=== PATIENT | female | born 1985 | race Caucasian/White ===

== ENCOUNTER 2017-11-13 08:03 | Emergency (ER) | payer MEDICARE, OTHER ==
[2017-11-13 08:12] VITALS: BP 129/69; PULSE 69; RESP 18; TEMP 98.2
[2017-11-13] MEDS ORDERED: MORPHINE SULFATE 4MG/4ML SYRG IM STA (08:32)
--- NOTE | 2017-11-13 08:36 | ED ---
General Adult HPI - General Chief complaint: Back Pain/Injury Stated complaint: Fall Time Seen by Provider: 11/13/17 08:15 Source: patient, RN notes reviewed Mode of arrival: wheelchair Limitations: physical limitation - History of Present Illness Initial comments: Patient 32-year-old female presented to the emergency room today with a chief complaint of a slip and fall that occurred this morning. She states she slipped on some icy steps falling down on one of the stairs on mid right back. Patient does admit to a history of back pain had a back surgery 2 years ago and for her. Patient states that she has had increased pain to the area where she fell on the right side of the back also pain radiating into the right leg going down the foot. States she's never had that before. Denies any bowel or bladder incontinence retention. Denies any saddle anesthesia. Denies any other complaints. Denies any head injury or loss consciousness. Patient denies any recent fever, chills, shortness of breath, chest pain, abdominal pain, nausea or vomiting, dysuria or hematuria, constipation or diarrhea, headaches or visual changes, or any other complaints. - Related Data Home Medications Medication Instructions Recorded Confirmed Cyclobenzaprine [Flexeril] 10 mg PO TID PRN 11/13/17 11/13/17 Desvenlafaxine Succinate [Pristiq 50 mg PO DAILY 11/13/17 11/13/17 ER] Diclofenac Sodium [Voltaren] 75 mg PO BID PRN 11/13/17 11/13/17 Melatonin 10 mg PO HS PRN 11/13/17 11/13/17 clonazePAM [KlonoPIN] 0.5 mg PO TID PRN 11/13/17 11/13/17 lamoTRIgine [LaMICtal] 200 mg PO BID 11/13/17 11/13/17 oxyCODONE-APAP 10-325MG [Percocet 1 tab PO TID PRN 11/13/17 11/13/17 10-325 mg] Previous Rx's Medication Instructions Recorded Dexamethasone 0.75 mg PO DIRECTED #12 tablet 11/13/17 Ibuprofen [Motrin] 800 mg PO Q6HR #30 tab 11/13/17 Allergies Allergy/AdvReac Type Severity Reaction Status Date / Time TAPE AdvReac Rash/Hives Uncoded 11/13/17 08:12 Review of Systems ROS Statement: Those systems with pertinent positive or pertinent negative responses have been documented in the HPI. ROS Other: All systems not noted in ROS Statement are negative. Past Medical History Past Medical History: No Reported History History of Any Multi-Drug Resistant Organisms: None Reported Additional Past Surgical History / Comment(s): LUMBAR FUSION 2016 Past Psychological History: Depression Smoking Status: Never smoker Past Alcohol Use History: Rare Past Drug Use History: None Reported General Exam - General Exam Comments Initial Comments: General: The patient is awake and alert, in no distress, and does not appear acutely ill. Eye: Pupils are equal, round and reactive to light, extra-ocular movements are intact. No nystagmus. There is normal conjunctiva bilaterally. No signs of icterus. Ears, nose, mouth and throat: There are moist mucous membranes and no oral lesions. Neck: The neck is supple, there is no tenderness or JVD. Cardiovascular: There is a regular rate and rhythm. No murmur, rub or gallop is appreciated. Respiratory: Lungs are clear to auscultation, respirations are non-labored, breath sounds are equal. No wheezes, stridor, rales, or rhonchi. Musculoskeletal: Normal ROM. Surgical incision midline lower lumbar. Patient does have tenderness throughout the lumbar spine with increased tenderness To the right side of the lumbar spine. Strength 5/5. Sensation intact. Pulses equal bilaterally 2+. Neurological: A&O x 3. CN II-XII intact, There are no obvious motor or sensory deficits. Coordination appears grossly intact. Speech is normal. Skin: Skin is warm and dry and no rashes or lesions are noted. Psychiatric: Cooperative, appropriate mood & affect, normal judgment. Limitations: physical limitation Course Vital Signs 11/13/17 08:04 Temperature 98.2 F Pulse Rate 69 Respiratory 18 Rate Blood Pressure 129/69 O2 Sat by Pulse 100 Oximetry Medical Decision Making - Medical Decision Making Patient reexamined at this time shows no signs of distress. Patient was given morphine here in the emergency room for her symptoms. Patient's x-rays have been reviewed and shows stable hardware no acute abnormalities. Results were discussed with the patient. She has Percocet at home along with muscle relaxers that she can use. She'll be given anti-inflammatories and steroids for her symptoms. Advised to follow-up with family physician and orthopedics for further evaluation Disposition Clinical Impression: Acute exacerbation of chronic low back pain Disposition: HOME SELF-CARE Condition: Good Instructions: Acute Low Back Pain (ED) Additional Instructions: Please use medication as discussed. Please follow-up with family doctor in the next 2 days of symptoms have not improved. Please return to emergency room if the symptoms increase or worsen or for any other concerns. Prescriptions: Dexamethasone 0.75 mg PO DIRECTED #12 tablet Ibuprofen [Motrin] 800 mg PO Q6HR #30 tab Is patient prescribed a controlled substance at discharge?: No Referrals: None,Stated [Primary Care Provider] - 1-2 days Dahiana Michael MD [STAFF PHYSICIAN] - 1-2 days Moustapha Brunson DO [Doctor of Osteopathic Medicine] - 1-2 days Time of Disposition: 09:06
--- NOTE | 2017-11-13 08:50 | XR ---
EXAMINATION TYPE: XR lumbar spine 2 or 3V DATE OF EXAM: 11/13/2017 CLINICAL HISTORY: Back pain after a fall with history of prior lumbar surgery TECHNIQUE: Frontal and lateral images of the lumbar spine are obtained. COMPARISON: None FINDINGS: There are 5 lumbar type vertebral bodies identified. Pedicular screws, fixation rods, ant erior fixation devices and intervertebral disc cages along with surgical clips are seen of L3-S1. The re is a slight levoscoliosis of the thoracolumbar junction. Vertebral body heights and alignment appe ar maintained. Visualized ribs are intact. Overlying bowel gas pattern is nondilated. Transverse proc esses also appear intact. IMPRESSION: 1. No acute fracture or malalignment is seen in the lumbar spine. 2. Postoperative changes of L3-S1 and mild levoscoliosis of the thoracolumbar junction.
== END 2017-11-13 09:17 | disposition home or self-care (01) ==
LOC: EC 08:03
DX: M54.5 Low back pain (principal); G89.29 Other chronic pain; F32.9 Major depressive disorder, single episode, unspecified; Z79.899 Other long term (current) drug therapy; Z91.09 Other allergy status, other than to drugs and biological substances; Z98.890 Other specified postprocedural states; W10.9XXA Fall (on) (from) unspecified stairs and steps, initial encounter
CPT/HCPCS: 72100; 99283; J2270

== ENCOUNTER 2017-12-21 12:27 | Emergency (ER) | payer MEDICARE, OTHER ==
[2017-12-21 12:35] VITALS: RESP 18
[2017-12-21] MEDS ORDERED: SODIUM CHLORIDE 0.9% 1,000 ML IV STA (13:06)
[2017-12-21] MEDS ORDERED: METOCLOPRAMIDE 5 MG/ML 2 ML VIAL IVP STA (13:06)
[2017-12-21] MEDS ORDERED: KETOROLAC 30 MG/ML 1 ML VIAL IVP STA (13:06)
[2017-12-21] MEDS ORDERED: PANTOPRAZOLE 40 MG/10 ML VIAL IVP STA (13:06)
--- NOTE | 2017-12-21 13:13 | ED ---
Abdominal Pain HPI - General Chief Complaint: Abdominal Pain Stated Complaint: Sent by [facility] abdominal pain Time Seen by Provider: 12/21/17 12:48 Source: patient, RN notes reviewed, old records reviewed Mode of arrival: ambulatory Limitations: no limitations - History of Present Illness Initial Comments: 32-year-old female presents to the emergency Department chief complaint of burning abdominal pain for the past 2 days. Chest is nauseated. She was treated for an upper respiratory infection earlier in the week by medics breath. Was started on steroids and antibiotics. Patient states she's been taking his medications. Patient relates that she's had a history of gastritis. She was given fluids and sent here for medical history further dehydration further evaluation in regards to abdominal pain. She states that her cough and congestion as mildly improving. Patient states that she did not receive much relief after Zofran and Pepcid to urgent care. - Related Data Home Medications Medication Instructions Recorded Confirmed Desvenlafaxine Succinate [Pristiq 50 mg PO DAILY 11/13/17 12/21/17 ER] clonazePAM [KlonoPIN] 0.5 mg PO TID PRN 11/13/17 12/21/17 lamoTRIgine [LaMICtal] 200 mg PO DAILY 11/13/17 12/21/17 oxyCODONE-APAP 10-325MG [Percocet 1 tab PO TID PRN 11/13/17 12/21/17 10-325 mg] Amoxicillin/Potassium Clav 1 tab PO TID 12/21/17 12/21/17 [Augmentin 500-125 Tablet] Previous Rx's Medication Instructions Recorded Omeprazole 20 mg PO DAILY #20 cap 12/21/17 Ondansetron [Zofran] 4 mg PO Q8HR PRN #15 tab 12/21/17 Allergies Allergy/AdvReac Type Severity Reaction Status Date / Time TAPE AdvReac Rash/Hives Uncoded 12/21/17 12:35 Review of Systems ROS Statement: Those systems with pertinent positive or pertinent negative responses have been documented in the HPI. ROS Other: All systems not noted in ROS Statement are negative. Past Medical History Past Medical History: No Reported History Additional Past Medical History / Comment(s): back pain History of Any Multi-Drug Resistant Organisms: None Reported Past Surgical History: No Surgical Hx Reported Additional Past Surgical History / Comment(s): LUMBAR FUSION 2016 Past Psychological History: Anxiety, Depression Smoking Status: Never smoker Past Alcohol Use History: None Reported Past Drug Use History: None Reported General Exam - General Exam Comments Initial Comments: 32-year-old female. Alert and oriented. No acute distress. Limitations: no limitations General appearance: alert, in no apparent distress Head exam: Present: atraumatic, normocephalic, normal inspection Eye exam: Present: normal appearance, PERRL, EOMI. Absent: scleral icterus, conjunctival injection, periorbital swelling ENT exam: Present: normal exam, mucous membranes moist Neck exam: Present: normal inspection. Absent: tenderness, meningismus, lymphadenopathy Respiratory exam: Present: normal lung sounds bilaterally. Absent: respiratory distress, wheezes, rales, rhonchi, stridor Cardiovascular Exam: Present: regular rate, normal rhythm, normal heart sounds. Absent: systolic murmur, diastolic murmur, rubs, gallop, clicks GI/Abdominal exam: Present: soft, normal bowel sounds. Absent: distended, tenderness, guarding, rebound, rigid Extremities exam: Present: normal inspection, full ROM, normal capillary refill. Absent: tenderness, pedal edema, joint swelling, calf tenderness Back exam: Present: normal inspection Neurological exam: Present: alert, oriented X3, CN II-XII intact Psychiatric exam: Present: normal affect, normal mood Skin exam: Present: warm, dry, intact, normal color. Absent: rash Course Vital Signs 12/21/17 12:32 Temperature 97.0 F L Pulse Rate 59 L Respiratory 18 Rate Blood Pressure 120/64 O2 Sat by Pulse 99 Oximetry Medical Decision Making - Lab Data Result diagrams: 12/21/17 13:15 12/21/17 13:15 Lab Results 12/21/17 12/21/17 12/21/17 Range/Units 13:15 13:15 14:23 WBC 12.7 H (3.8-10.6) k/uL RBC 4.35 (3.80-5.40) m/uL Hgb 12.7 (11.4-16.0) gm/dL Hct 37.5 (34.0-46.0) % MCV 86.1 (80.0-100.0) fL MCH 29.2 (25.0-35.0) pg MCHC 33.9 (31.0-37.0) g/dL RDW 12.9 (11.5-15.5) % Plt Count 252 (150-450) k/uL Neutrophils % 69 % Lymphocytes % 22 % Monocytes % 6 % Eosinophils % 2 % Basophils % 0 % Neutrophils # 8.8 H (1.3-7.7) k/uL Lymphocytes # 2.8 (1.0-4.8) k/uL Monocytes # 0.7 (0-1.0) k/uL Eosinophils # 0.2 (0-0.7) k/uL Basophils # 0.0 (0-0.2) k/uL Sodium 144 (137-145) mmol/L Potassium 3.5 (3.5-5.1) mmol/L Chloride 105 (98-107) mmol/L Carbon Dioxide 26 (22-30) mmol/L Anion Gap 13 mmol/L BUN 15 (7-17) mg/dL Creatinine 0.70 (0.52-1.04) mg/dL Est GFR (CKD-EPI)AfAm >90 (>60 ml/min/1.73 sqM) Est GFR (CKD-EPI)NonAf >90 (>60 ml/min/1.73 sqM) Glucose 80 (74-99) mg/dL Calcium 9.2 (8.4-10.2) mg/dL Total Bilirubin 0.2 (0.2-1.3) mg/dL AST 23 (14-36) U/L ALT 47 (9-52) U/L Alkaline Phosphatase 61 (38-126) U/L Total Protein 6.3 (6.3-8.2) g/dL Albumin 3.9 (3.5-5.0) g/dL Amylase 52 (30-110) U/L Lipase 47 (23-300) U/L Urine Color Yellow Urine Appearance Clear (Clear) Urine pH 5.5 (5.0-8.0) Ur Specific Adrian 1.024 (1.001-1.035) Urine Protein Trace H (Negative) Urine Glucose (UA) Negative (Negative) Urine Ketones 1+ H (Negative) Urine Blood Negative (Negative) Urine Nitrite Negative (Negative) Urine Bilirubin Negative (Negative) Urine Urobilinogen <2.0 (<2.0) mg/dL Ur Leukocyte Esterase Negative (Negative) Disposition Clinical Impression: Gastritis Disposition: HOME SELF-CARE Condition: Good Instructions: Gastritis (ED) Additional Instructions: Patient has follow-up with primary care provider. Return to the emergency department if any alarming signs or symptoms occur. Prescriptions: Omeprazole 20 mg PO DAILY #20 cap Ondansetron [Zofran] 4 mg PO Q8HR PRN #15 tab PRN Reason: Pain Is patient prescribed a controlled substance at d/c from ED?: No When asked, does pt state using other controlled substances?: No If prescribed controlled substance>3 days was MAPS reviewed?: No If opioid is for acute pain is fill amount 7 days or less?: No If Rx opioid, was Start Talking consent form obtained?: No Referrals: Jacqueline Yeh MD [Primary Care Provider] - 1-2 days Time of Disposition: 15:29
[2017-12-21 13:29] LABS: Basophils % (A) 0 %; Eosinophils # (A) 0.2 k/uL (0-0.7); Eosinophils % (A) 2 %; HCT 37.5 % (34.0-46.0); HGB 12.7 gm/dL (11.4-16.0); Lymphocytes # (A) 2.8 k/uL (1.0-4.8); Lymphocytes % (A) 22 %; MCH 29.2 pg (25.0-35.0); MCHC 33.9 g/dL (31.0-37.0); MCV 86.1 fL (80.0-100.0); Mean Platelet Volume 7.6; Monocytes # (A) 0.7 k/uL (0-1.0); Monocytes % (A) 6 %; Neutrophils # (A) 8.8 k/uL (1.3-7.7); Neutrophils % (A) 69 %; Platelet Count 252 k/uL (150-450); RBC 4.35 m/uL (3.80-5.40); RDW 12.9 % (11.5-15.5); WBC 12.7 k/uL (3.8-10.6)
[2017-12-21 13:37] LABS: ALT 47 U/L (9-52); AST 23 U/L (14-36); Albumin 3.9 g/dL (3.5-5.0); Alkaline Phosphatase 61 U/L (38-126); Amylase 52 U/L (30-110); Anion Gap 13 mmol/L; Blood Urea Nitrogen 15 mg/dL (7-17); Calcium 9.2 mg/dL (8.4-10.2); Carbon Dioxide 26 mmol/L (22-30); Chloride 105 mmol/L (98-107); Glucose 80 mg/dL (74-99); Lipase 47 U/L (23-300); Potassium 3.5 mmol/L (3.5-5.1); Sodium 144 mmol/L (137-145); Total Bilirubin 0.2 mg/dL (0.2-1.3); Total Protein 6.3 g/dL (6.3-8.2)
--- NOTE | 2017-12-21 13:49 | XR ---
EXAMINATION TYPE: XR chest 2V DATE OF EXAM: 12/21/2017 COMPARISON: NONE INDICATION: Abdominal pain TECHNIQUE: Frontal and lateral views of the chest are obtained. FINDINGS: The heart size is normal. The pulmonary vasculature is normal. The lungs are clear. Scoliosis is noted. IMPRESSION: 1. No acute pulmonary process.
--- NOTE | 2017-12-21 14:26 | US ---
EXAMINATION TYPE: US gallbladder DATE OF EXAM: 12/21/2017 COMPARISON: NONE CLINICAL HISTORY: Pain. EC patient with RUQ burning today, loose stools last night; on Augmentin x 4 days for ear infection EXAM MEASUREMENTS: Liver Length: 15.6 cm Gallbladder Wall: 0.1 cm CBD: 0.3 cm Right Kidney: 10.9 x 5.9 x 3.5 cm Pancreas: wnl Liver: limited visualization due to overlying bowel gas Gallbladder: wnl Evidence for sonographic Balderrama's sign: No CBD: wnl Right Kidney: wnl IMPRESSION: 1. Normal right upper quadrant ultrasound.
[2017-12-21 14:51] LABS: Appearance,Urine Clear (Clear); Bilirubin,Urine Negative (Negative); Blood,Urine Negative (Negative); Color,Urine Yellow; Glucose,Urine (UA) Negative (Negative); Ketones,Urine 1+ (Negative); Leukocyte Esterase,Urine Negative (Negative); Nitrite,Urine Negative (Negative); PH, Urine 5.5 (5.0-8.0); Protein,Urine Trace (Negative); Specific Gravity,Urine 1.024 (1.001-1.035); Urobilinogen,Urine <2.0 mg/dL (<2.0)
[2017-12-21 15:43] VITALS: BP 122/57; PULSE 58; TEMP 98.1
== END 2017-12-21 15:48 | disposition home or self-care (01) ==
LOC: EC 12:27
DX: K29.70 Gastritis, unspecified, without bleeding (principal); F32.9 Major depressive disorder, single episode, unspecified; F41.9 Anxiety disorder, unspecified; Z79.899 Other long term (current) drug therapy; Z91.048 Other nonmedicinal substance allergy status; Z53.29 Procedure and treatment not carried out because of patient's decision for other reasons
CPT/HCPCS: 36415; 80053; 82150; 83690; 85025; 81003; 71046; 76705; 99285; 96374; 96375; 96361; J1885; C9113

== ENCOUNTER → 2018-02-13 | Outpatient (CLI) | payer MEDICARE, OTHER ==
--- NOTE | 2018-02-14 12:44 | MR ---
EXAMINATION TYPE: MR cervical spine wo con DATE OF EXAM: 02/13/2018 COMPARISON: HISTORY: Neck/lower back pain, headaches TECHNIQUE: Multiplanar, multisequence images of the cervical spine were acquired. C2-C3: No evidence for degenerative disc disease. No disc bulge/herniation or protrusion. No Canal stenosis. Foramina are patent bilaterally. C3-C4: Some loss of disc height and signal is present, posterior broad-based disc bulge causes mild a nterior mass effect on the thecal sac. Lateral extension of endplate disc complex causes minimal encr oachment on the foramina. No significant central stenosis. C4-C5: No evidence for degenerative disc disease. No disc bulge/herniation or protrusion. No Canal stenosis. Foramina are patent bilaterally. C5-C6: No evidence for degenerative disc disease. No disc bulge/herniation or protrusion. No Canal stenosis. Foramina are patent bilaterally. C6-C7: No evidence for degenerative disc disease. No disc bulge/herniation or protrusion. No Canal stenosis. Foramina are patent bilaterally. C7-T1: No evidence for degenerative disc disease. No disc bulge/herniation or protrusion. No Canal stenosis. Foramina are patent bilaterally. Cervical segments are intact. There is normal alignment. Cervical spinal cord is of normal signal. Craniovertebral junction relationships are within normal limits. There is mild multilevel spondylos is, some minimal endplate discogenic marrow signal change present C4-5. IMPRESSION: Mild degenerative disc disease.
--- NOTE | 2018-02-14 12:56 | MR ---
EXAMINATION TYPE: MR lumbar spine wo/w con DATE OF EXAM: 02/13/2018 COMPARISON: Plain film 11/13/2017 HISTORY: Neck/lower back pain, headaches, hx lumbar fusion TECHNIQUE: Multiplanar, multisequence images of the lumbar spine were acquired utilizing 7.5 mL intravenous Gada vist gadolinium contrast. L1-L2: Normal disc appearance without desiccation. No herniation, protrusion or disc bulging. No ca nal stenosis is present. Foramina are patent bilaterally. L2-L3: Normal disc appearance without desiccation. No herniation, protrusion or disc bulging. No ca nal stenosis is present. Foramina are patent bilaterally. L3-L4: No evident disc herniation. L4-L5: No evident disc herniation. L5-S1: Suspect there is posterior extension of endplate disc complex resulting in some possible anter ior mass effect on the proximal S1 nerve root There is extensive artifact due to patient's fusion changes at L3-S1. There is a spinal curvature. Th ere is no evident spinal stenosis. No abnormal enhancement is evident IMPRESSION: Exam is limited. Correlate for left S1 radiculopathy. Patient is with known scoliosis.
== END | disposition home or self-care (01) ==
LOC: RADMRIMAIN 20:59
PROVIDERS: ATTEND Nurse Practitioner Acute Care
DX: M50.30 Other cervical disc degeneration, unspecified cervical region (principal); M41.86 Other forms of scoliosis, lumbar region
CPT/HCPCS: 72141; 72158; A9581

== ENCOUNTER 2018-03-02 12:56 | Emergency (ER) | payer MEDICARE, OTHER ==
[2018-03-02 13:28] VITALS: BP 117/64; PULSE 54; RESP 18; TEMP 98.2
[2018-03-02] MEDS ORDERED: PROPARACAINE 0.5% OPHTH DROPS 15 ML BTL RIGHT EYE STA (14:22)
--- NOTE | 2018-03-02 14:50 | ED ---
Eye Problem HPI - General Chief complaint: Eye Problems Stated complaint: Oil in R eye by accident Time Seen by Provider: 03/02/18 14:19 Source: patient, RN notes reviewed Mode of arrival: ambulatory Limitations: no limitations - History of Present Illness Initial comments: This is a 32-year-old female who presents to the emergency department with chief complaint of foreign substance in the eye. Patient states that she woke up at 3 AM in the morning and went to put eye drops in her eye. She states that she accidentally put Lavender essential oil into the eye instead. Patient states that her eye instantly felt irritated and she flushed it out with some water. She states that she went to bed and when she woke up in the morning it was crusted shut. Patient states she presented to [facility] and they checked the pH of her eye and that it was alkaline. She states that they recommended that patient come to the emergency department for further evaluation. Patient states that she does have some blurred vision. She states that she normally wears contact lenses but was not wearing them at the time of the incident or today. Patient reports eye pain. Denies vision loss. Denies fevers or chills, chest pain or shortness or breath, abdominal pain, nausea or vomiting, dizziness or headache. - Related Data Home Medications Medication Instructions Recorded Confirmed Desvenlafaxine Succinate [Pristiq 50 mg PO DAILY 11/13/17 12/21/17 ER] clonazePAM [KlonoPIN] 0.5 mg PO TID PRN 11/13/17 12/21/17 lamoTRIgine [LaMICtal] 200 mg PO DAILY 11/13/17 12/21/17 oxyCODONE-APAP 10-325MG [Percocet 1 tab PO TID PRN 11/13/17 12/21/17 10-325 mg] Amoxicillin/Potassium Clav 1 tab PO TID 12/21/17 12/21/17 [Augmentin 500-125 Tablet] Previous Rx's Medication Instructions Recorded Omeprazole 20 mg PO DAILY #20 cap 12/21/17 Ondansetron [Zofran] 4 mg PO Q8HR PRN #15 tab 12/21/17 Carboxymethylcellulose Sodium 2 drops OP TID PRN #1 bottle 03/02/18 [Refresh Tears] Allergies Allergy/AdvReac Type Severity Reaction Status Date / Time TAPE AdvReac Rash/Hives Uncoded 02/12/18 01:04 Review of Systems ROS Statement: Those systems with pertinent positive or pertinent negative responses have been documented in the HPI. ROS Other: All systems not noted in ROS Statement are negative. Past Medical History Past Medical History: No Reported History Additional Past Medical History / Comment(s): chronic back pain History of Any Multi-Drug Resistant Organisms: None Reported Past Surgical History: No Surgical Hx Reported Additional Past Surgical History / Comment(s): LUMBAR FUSION 2016 Past Psychological History: Anxiety, Depression Smoking Status: Never smoker Past Alcohol Use History: Occasional Past Drug Use History: None Reported General Exam - General Exam Comments Initial Comments: General: Awake and alert, well-developed; in no apparent distress. HEENT: Head atraumatic, normocephalic. Pupils are equal, round and reactive to light. Extraocular movements intact. Right conjunctiva is injected. PH is 7.0. Intraocular pressure is 14. On fluorescein staining, no abrasions or ulcers are noted. No uptake is noted. Patient's pain was relieved with instillation of proparacaine drops. Oropharynx moist without erythema or exudate. Neck: Supple. Normal ROM. Cardiovascular: Regular rate and rhythm. No murmurs, rubs or gallops. Chest symmetrical. Respiratory: Lungs clear to auscultation bilaterally. No wheezes, rales or rhonchi. Normal respiratory effort with no use of accessory muscles. Musculoskeletal: Normal ROM, no tenderness bilateral upper and lower extremities. Ambulating normally. Skin: [place], warm and dry without rashes or lesions. Neurological: Alert and oriented x3. CN II-XII grossly intact. Speech is fluent and answers are appropriate. No focal neuro deficits. Psychiatric: Normal mood and affect. No overt signs of depression or anxiety noted. Limitations: no limitations Course Vital Signs 03/02/18 13:23 Temperature 98.2 F Pulse Rate 54 L Respiratory 18 Rate Blood Pressure 117/64 O2 Sat by Pulse 99 Oximetry Medical Decision Making - Medical Decision Making This is a 32-year-old female who presents to the emergency department with chief complaint of foreign substance in the eye. Patient reports accidentally putting lavender essential oil into her right eyelid last night. On physical examination, right conjunctiva is injected. Patient normally does wear contact lenses however has not been wearing them today. PH was 7.0. Intraocular pressure is 14. No abrasions or ulcerations noted with fluorescein staining. No foreign bodies identified. Patient will be prescribed lubricating eyedrops. Recommended returning to the emergency department if any new symptoms arise or symptoms worsen. Recommended following up with Dr. Cartwright, ophthalmology on Sunday. Patient is in agreement with this plan. Vital signs are stable and she is in no acute distress. She will be discharged home at this time. All questions were answered. Case was discussed with attending physician, Dr. Barton. Disposition Clinical Impression: Chemical exposure of eye Disposition: HOME SELF-CARE Condition: Good Instructions: Chemical Eye Wild (ED), Eye Foreign Body (ED) Additional Instructions: Please follow-up with Dr. Cartwright, wellness specialist on Sunday. Please take medications as prescribed. Please follow up with primary care provider within 1- 2 days. Return to emergency department if symptoms should worsen or any concerns arise. Prescriptions: Carboxymethylcellulose Sodium [Refresh Tears] 2 drops OP TID PRN #1 bottle PRN Reason: Eye Irritation Is patient prescribed a controlled substance at d/c from ED?: No Referrals: Jacqueline Yeh MD [Primary Care Provider] - 1-2 days Tai Cartwright MD [STAFF PHYSICIAN] - 1-2 days Time of Disposition: 15:02
== END 2018-03-02 15:15 | disposition home or self-care (01) ==
LOC: EC 12:56
DX: Z77.098 Contact with and (suspected) exposure to other hazardous, chiefly nonmedicinal, chemicals (principal); F41.9 Anxiety disorder, unspecified; F32.9 Major depressive disorder, single episode, unspecified; Z79.899 Other long term (current) drug therapy; Z91.048 Other nonmedicinal substance allergy status
CPT/HCPCS: 99283

== ENCOUNTER 2019-02-09 19:55 | Emergency (ER) | payer MEDICARE, OTHER ==
[2019-02-09 20:10] VITALS: BP 111/70; PULSE 57; RESP 18; TEMP 98
--- NOTE | 2019-02-09 20:33 | ED ---
Skin/Abscess/FB HPI - General Chief complaint: Skin/Abscess/Foreign Body Stated complaint: Cannot get ring off Time Seen by Provider: 02/09/19 20:20 Source: patient Mode of arrival: ambulatory Limitations: no limitations - History of Present Illness Initial comments: 33-year-old female presenting for inability to get wedding ring off. Patient states she has an outpatient MRI scheduled for tomorrow. Patient states she needs to have all jewelry off. Patient states she is unable to remove wedding ring. Patient states she attempted dental floss she attempted lubricants at home as well as icing the knuckle. Patient states she cannot remove the ring. Patient states it is painful now insulin, 20 removal. Patient presents emergency department for removal - Related Data Home Medications Medication Instructions Recorded Confirmed Desvenlafaxine Succinate [Pristiq 50 mg PO DAILY 11/13/17 12/21/17 ER] clonazePAM [KlonoPIN] 0.5 mg PO TID PRN 11/13/17 12/21/17 lamoTRIgine [LaMICtal] 200 mg PO DAILY 11/13/17 12/21/17 oxyCODONE-APAP 10-325MG [Percocet 1 tab PO TID PRN 11/13/17 12/21/17 10-325 mg] Amoxicillin/Potassium Clav 1 tab PO TID 12/21/17 12/21/17 [Augmentin 500-125 Tablet] Previous Rx's Medication Instructions Recorded Omeprazole 20 mg PO DAILY #20 cap 12/21/17 Ondansetron [Zofran] 4 mg PO Q8HR PRN #15 tab 12/21/17 Carboxymethylcellulose Sodium 2 drops OP TID PRN #1 bottle 03/02/18 [Refresh Tears] Allergies Allergy/AdvReac Type Severity Reaction Status Date / Time TAPE AdvReac Rash/Hives Uncoded 02/09/19 20:07 Review of Systems ROS Statement: Those systems with pertinent positive or pertinent negative responses have been documented in the HPI. ROS Other: All systems not noted in ROS Statement are negative. Past Medical History Past Medical History: No Reported History Additional Past Medical History / Comment(s): chronic back pain History of Any Multi-Drug Resistant Organisms: None Reported Past Surgical History: No Surgical Hx Reported Additional Past Surgical History / Comment(s): LUMBAR FUSION 2016 Past Psychological History: Anxiety, Depression Smoking Status: Never smoker Past Alcohol Use History: Occasional Past Drug Use History: None Reported General Exam - General Exam Comments Initial Comments: General: The patient is awake and alert, in no distress, and does not appear acutely ill. Eye: Pupils are equal, round and reactive to light, extra-ocular movements are intact. No nystagmus. There is normal conjunctiva bilaterally. No signs of icterus. Cardiovascular: There is a regular rate and rhythm. No murmur, rub or gallop is appreciated. Respiratory: Lungs are clear to auscultation, respirations are non-labored, breath sounds are equal. No wheezes, stridor, rales, or rhonchi. Gastrointestinal: Soft, non-distended, non-tender abdomen without masses or organomegaly noted. There is no rebound or guarding present. Musculoskeletal: Normal ROM, no tenderness. Strength 5/5. Sensation intact. Pulses equal bilaterally 2+. Neurological: A&O x 3. CN II-XII intact, There are no obvious motor or sensory deficits. Coordination appears grossly intact. Speech is normal. Skin: Skin is warm and dry and no rashes. Silver wedding ring with band on ring finger of left hand very mild soft tissue swelling at knuckle. Psychiatric: Cooperative, appropriate mood & affect, normal judgment. Limitations: no limitations Course Vital Signs 02/09/19 20:07 Temperature 98.0 F Pulse Rate 57 L Respiratory 18 Rate Blood Pressure 111/70 O2 Sat by Pulse 95 Oximetry Medical Decision Making - Medical Decision Making Patient presented for ring removal. Unable to remove ring with dental floss in ER and lubricant. Patient states she would like a cut off. Patient ring was cut with ring cutters. Patient is discharged appearing well no other complaints. There is no swelling or tenderness of the ring finger prior to patient's attempts at home for removal of ring. Patient denies any injury to the finger. Disposition Clinical Impression: Finger pain Narrative: RING STUCK ON FINGER Disposition: HOME SELF-CARE Condition: Good Is patient prescribed a controlled substance at d/c from ED?: No Referrals: Jacqueline Yeh MD [Primary Care Provider] - 1-2 days Time of Disposition: 20:33
== END 2019-02-09 20:40 | disposition home or self-care (01) ==
LOC: EC 19:55
DX: M79.646 Pain in unspecified finger(s) (principal); F41.9 Anxiety disorder, unspecified; F32.9 Major depressive disorder, single episode, unspecified; Z79.899 Other long term (current) drug therapy; Z91.048 Other nonmedicinal substance allergy status; Z98.1 Arthrodesis status
CPT/HCPCS: 99283

== ENCOUNTER → 2020-01-13 | Outpatient (CLI) | payer MEDICARE, OTHER ==
[2020-01-13 12:04] LABS: Basophils % (A) 0 %; Eosinophils # (A) 0.3 k/uL (0-0.7); Eosinophils % (A) 4 %; HCT 39.5 % (34.0-46.0); HGB 13.5 gm/dL (11.4-16.0); Lymphocytes # (A) 2.9 k/uL (1.0-4.8); Lymphocytes % (A) 37 %; MCH 29.4 pg (25.0-35.0); MCV 86.3 fL (80.0-100.0); Mean Platelet Volume 8.8; Monocytes # (A) 0.5 k/uL (0-1.0); Monocytes % (A) 7 %; Neutrophils % (A) 50 %; Platelet Count 203 k/uL (150-450); RBC 4.58 m/uL (3.80-5.40)
[2020-01-13 12:09] LABS: Potassium 4.4 mmol/L (3.5-5.1)
== END | disposition home or self-care (01) ==
LOC: LABPAT 10:45
PROVIDERS: ATTEND Orthopaedic Surgery
DX: Z01.818 Encounter for other preprocedural examination (principal); M23.92 Unspecified internal derangement of left knee
CPT/HCPCS: 36415; 80051; 85025

== ENCOUNTER → 2020-01-22 | Outpatient (CLI) | payer MEDICARE, OTHER | END | disposition home or self-care (01) | LOC: LABWHC1 14:40 | PROVIDERS: ATTEND Psychiatry & Neurology Pain Medicine | DX: Z51.81 Encounter for therapeutic drug level monitoring (principal) | CPT/HCPCS: 36415; 93005 ==

== ENCOUNTER → 2020-02-05 | Day surgery (SDC) | payer MEDICARE, OTHER ==
[2020-02-02 12:46] VITALS: BMI 39.1
--- NOTE | 2020-02-04 16:57 | HP ---
HISTORY AND PHYSICAL DATE OF SERVICE: 02/05/2020 Vikki Cotto is a 34-year-old patient seen with progressive left knee pain. Treatment options were discussed. The patient elected to proceed with left knee arthroscopy. Consent was obtained. PAST MEDICAL HISTORY: Anxiety, chronic back pain. PAST SURGICAL HISTORY: Noncontributory. MEDICATIONS: Morphine pain pump, oxycodone, Prozac. ALLERGIES: None. SOCIAL HISTORY: Denies tobacco use. PHYSICAL EVALUATION OF THE LEFT KNEE: Range of motion 0-130. Mild effusion. Tenderness medial and lateral joint lines. Positive medial Dionna's. Ligaments stable. Hip rotation without pain. Distal neurovascular exam intact. RADIOGRAPHS: Left knee mild osteoarthritis. MRI left knee revealed medial and lateral meniscal tears. IMPRESSION: 1. Internal derangement, left knee with medial and lateral meniscal tears. 2. Chronic low back pain. 3. Chronic opioid use. PLAN: Left knee arthroscopy with partial meniscectomy, partial synovectomy and debridement. MMODL / IJN: [id number] /
[~2020-02-05] MED LIST: BUPIVACAINE (PF) 0.25% 30 ML VIAL SQ ONE; DEXAMETHASONE SOD PHOSPHATE 10 MG/ML 1 ML VIAL IV ONE; DEXAMETHASONE SOD PHOSPHATE 4 MG/ML 1 ML VIAL ONE; HYDROmorphone 0.5 MG/0.5 ML SYRINGE IVP PRN; HYDROmorphone 1 MG/ML 1 ML SYRINGE IVP ONE; LACTATED RINGERS 1,000 ML IV ONE; LACTATED RINGERS 1,000 ML IV SCH; LIDOCAINE 1% (10MG/ML) FOR IV START INTRADERMA ONE; LIDOCAINE 1% INJ 10MG/ML (20 ML MDV) ONE; LIDOCAINE 2%-EPI 1:100,000 20 ML VIAL ONE; MIDAZOLAM 2 MG/2 ML VIAL ONE; ONDANSETRON 4 MG/2 ML VIAL IVP ONE; PROPOFOL 10 MG/ML 20 ML VIAL IV ONE; ROPIVACAINE 5 MG/ML 30 ML VIAL ONE; SCOPOLAMINE 1.5MG/72HR PATCH TRANSDERM ONE; fentaNYL (PF) 50 MCG/ML 2 ML AMP ONE; oxyCODONE-APAP 5-325MG 1 EACH TAB PO STA
--- NOTE | 2020-02-05 17:21 | P.OP ---
Date of Procedure: 02/05/20 Preoperative Diagnosis: Internal derangement left knee Postoperative Diagnosis: 1. Tear medial meniscus left knee 2. 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 Reactive synovitis medial, lateral and suprapatellar compartments left knee Procedure(s) Performed: 1. Arthroscopic partial medial meniscectomy left knee 2. Arthroscopic chondroplasty medial femoral condyle left knee 3. Arthroscopic chondroplasty patella left knee 4. Arthroscopic partial synovectomy medial, lateral and suprapatellar compartments left knee Anesthesia: ARIKA, local Surgeon: Mckay Arnold Estimated Blood Loss (ml): 7 Pathology: none sent Condition: stable Disposition: PACU Indications for Procedure: 34-year-old patient seen with progressive left knee pain. After treatment options were discussed, she elected to proceed with arthroscopy. Operative Findings: See description of procedure Description of Procedure: Patient was taken to the operative suite. Patient underwent a general anesthetic by the department of anesthesia. Patient was given preoperative antibiotics. The left lower extremity was placed in a well-padded arthroscopic leg landis. The left leg was prepped and draped in the normal sterile orthopedic fashion. A lateral parapatellar and suprapatellar incision was made. Trochars were inserted. Arthroscopy was initiated. Suprapatellar pouch revea led diffuse thick reactive synovitis. The patellofemoral joint appeared articulate congruently. There was grade 2 chondromalacia with diffuse osteochondral tears present involving mainly lateral facet. The scope was guided into the medial gutter. No loose bodies or plica were identified The scope was then guided into the medial compartment. A medial parapatellar incision was made. Trocar inserted followed by probe. There was a radial tear involving the posterior horn of the medial meniscus. There were grade 1/2 chondral malacia changes central portion/weightbearing surface medial femoral condyle with some osteochondral flap tears present. There was thick reactive synovitis anteriorly. I performed a partial medial meniscectomy. I performed a chondroplasty of the medial femoral condyle. I performed a partial synovectomy. The residual meniscus was stable. The residual osteochondral surface of the femoral condyle was stable. There was good decompression of the synovitis. Sc ope and probe were then guided into the intercondylar notch. Cruciates were identified, probed and found to be stable. The scope and probe were then guided into lateral compartment. Lateral meniscus was probed and found to be stable. There was no significant chondromalacia present. There was thick reactive synovitis anteriorly. I introduced a motorized shaver and performed a partial synovectomy decompressing the reactive synovitis. The shaver was removed. There was good decompression synovitis. The scope was in guided back into the suprapatellar compartment. I introduced a motorized shaver into the super compartment. I debrided piecemeal fragments of meniscus I encountered. I performed a chondroplasty of the patella getting down to stable osteochondral tissue. I performed a partial synovectomy decompressing reactive synovitis. The shaver was removed. I took one more look on the entire knee, no residual debris. Instruments were now removed from the joint. The joint was infiltrated with .25% Marcaine. Steri-Strips were applied to the portal sites. Sterile dressings were applied. The patient was placed into a LAUREL hose. No tourniquet was utilized. The patient was awakened, transferred to a bed and taken to recovery stable satisfactory condition.
--- NOTE | 2020-02-05 18:55 | P.ANPRN ---
Procedure Note - Anesthesia - Nerve Block Performed Left Adductor Canal Single Time Out Performed: Yes Date of Procedure: 02/05/20 Procedure Start Time: 18:00 Procedure Stop Time: 18:10 Location of Patient: Phase I Indication: Acute Post-Operative Pain, Dx/Pain Location (Left knee pain), Requested by Surgeon Sedation Type: Sedate with meaningful contact maintained Preparation: Sterile Prep, Sterile Dressing Position: Supine Catheter: None Needle Types: Pajunk Needle Gauge: 21 Ultrasound used to visualize needle placement: Yes Ultrasound used to observe medication spread: Yes Injectate: 0.5% Ropivacaine (see comment for volume) (20ml) Blood Aspirated: No Pain Paresthesia on Injection Noted: No Resistance on Injection: Normal Image Stored and Saved: Yes Events: Uneventful and Well Tolerated
[2020-02-06 08:05] VITALS: BP 136/83; PULSE 64; RESP 18; TEMP 96.8
== END | disposition home or self-care (01) ==
LOC: OR 13:24
PROVIDERS: ATTEND Orthopaedic Surgery
DX: S83.242A Other tear of medial meniscus, current injury, left knee, initial encounter (principal); M65.9 Synovitis and tenosynovitis, unspecified; M94.262 Chondromalacia, left knee; G89.29 Other chronic pain; M54.9 Dorsalgia, unspecified; F41.9 Anxiety disorder, unspecified; Z79.891 Long term (current) use of opiate analgesic; Z79.899 Other long term (current) drug therapy; Z98.1 Arthrodesis status; X58.XXXA Exposure to other specified factors, initial encounter
CPT/HCPCS: 29881; 29876; 64447; 81025; 76942; J2250; J1100 ×2; J0690; J2405; J2001; J3010; J1170; J2795; J2704

== ENCOUNTER → 2020-05-10 | Outpatient (CLI) | payer MEDICARE, OTHER ==
[2020-05-10 09:15] LABS: Basophils % (A) 0 %; Eosinophils # (A) 0.4 k/uL (0-0.7); Eosinophils % (A) 4 %; HCT 39.5 % (34.0-46.0); HGB 13.2 gm/dL (11.4-16.0); Lymphocytes # (A) 3.8 k/uL (1.0-4.8); Lymphocytes % (A) 36 %; MCH 28.2 pg (25.0-35.0); MCHC 33.3 g/dL (31.0-37.0); MCV 84.6 fL (80.0-100.0); Mean Platelet Volume 8.4; Monocytes # (A) 0.6 k/uL (0-1.0); Monocytes % (A) 6 %; Neutrophils # (A) 5.6 k/uL (1.3-7.7); Neutrophils % (A) 53 %; Platelet Count 213 k/uL (150-450); RBC 4.67 m/uL (3.80-5.40); RDW 12.7 % (11.5-15.5); WBC 10.7 k/uL (3.8-10.6)
[2020-05-10 09:27] LABS: Potassium 4.5 mmol/L (3.5-5.1)
== END | disposition home or self-care (01) ==
LOC: LABPAT 08:35
PROVIDERS: ATTEND Orthopaedic Surgery
DX: Z01.812 Encounter for preprocedural laboratory examination (principal); M23.91 Unspecified internal derangement of right knee
CPT/HCPCS: 36415; 80051; 85025

== ENCOUNTER 2020-05-12 11:00 | Day surgery (SDC) | payer MEDICARE, OTHER ==
[2020-05-10 16:04] VITALS: BMI 39.1
--- NOTE | 2020-05-11 16:39 | HP ---
HISTORY AND PHYSICAL DATE OF SURGERY: 05/12/2020 Vikki Cotto is a 34-year-old patient seen with progressive right knee pain. We discussed options for treatment. She elected to proceed with arthroscopy. Consent regarding the procedure was obtained. PAST MEDICAL HISTORY: Anxiety, depression. PAST SURGICAL HISTORY: Noncontributory. DAILY MEDICATIONS: Flexeril, morphine sulfate, oxycodone, Prozac. ALLERGIES: NONE. SOCIAL HISTORY: She denies tobacco use. PHYSICAL EVALUATION OF THE RIGHT KNEE: Her range of motion is zero to 130. Mild effusion. Tenderness along medial joint line. Positive medial Dionna's. Ligaments stable. Hip rotation without pain. Distal neurovascular exam is intact. RADIOGRAPHS: X-rays of the right knee reveal mild osteoarthritis. MRI revealed chondromalacia and osteoarthritis. IMPRESSION: 1. Internal derangement of right knee with osteochondral tear. 2. Right knee osteoarthritis. 3. Chronic low back pain. PLAN: Right knee arthroscopy with chondroplasty, possible partial meniscectomy and debridement. MMODL / IJN: [id number] /
[~2020-05-12 11:00] MED LIST changes: -BUPIVACAINE (PF) 0.25% 30 ML VIAL SQ ONE; -DEXAMETHASONE SOD PHOSPHATE 4 MG/ML 1 ML VIAL ONE; -HYDROmorphone 0.5 MG/0.5 ML SYRINGE IVP PRN; -HYDROmorphone 1 MG/ML 1 ML SYRINGE IVP ONE; -LACTATED RINGERS 1,000 ML IV ONE; -LIDOCAINE 1% (10MG/ML) FOR IV START INTRADERMA ONE; +LIDOCAINE 1% (10MG/ML) FOR IV START INTRADERMA PRN; -LIDOCAINE 1% INJ 10MG/ML (20 ML MDV) ONE; -LIDOCAINE 2%-EPI 1:100,000 20 ML VIAL ONE; +MIDAZOLAM 2 MG/2 ML VIAL IV PRN; -MIDAZOLAM 2 MG/2 ML VIAL ONE; -PROPOFOL 10 MG/ML 20 ML VIAL IV ONE; -ROPIVACAINE 5 MG/ML 30 ML VIAL ONE; -SCOPOLAMINE 1.5MG/72HR PATCH TRANSDERM ONE; -fentaNYL (PF) 50 MCG/ML 2 ML AMP ONE; -oxyCODONE-APAP 5-325MG 1 EACH TAB PO STA
[2020-05-12] MEDS ORDERED: SCOPOLAMINE 1.5MG/72HR PATCH TRANSDERM ONE (11:44)
[2020-05-12] MEDS ORDERED: LIDOCAINE 1% INJ 10MG/ML (20 ML MDV) ONE (12:26)
[2020-05-12] MEDS ORDERED: MIDAZOLAM 2 MG/2 ML VIAL ONE (12:26)
[2020-05-12] MEDS ORDERED: PROPOFOL 10 MG/ML 20 ML VIAL IV ONE (12:26)
[2020-05-12] MEDS ORDERED: KETOROLAC 15 MG/ML 1 ML VIAL ONE (12:26)
[2020-05-12] MEDS ORDERED: fentaNYL (PF) 50 MCG/ML 2 ML AMP ONE (12:26)
[2020-05-12] MEDS ORDERED: HYDROmorphone (PF) 1 MG/ML ONE (12:26)
[2020-05-12] MEDS ORDERED: BUPIVACAINE (PF) 0.25% 30 ML VIAL INTRAARTIC ONE (13:08)
[2020-05-12] MEDS ORDERED: BUPIVACAINE (PF) 0.25% 30 ML VIAL SQ ONE (13:08)
--- NOTE | 2020-05-12 13:22 | P.OP ---
Date of Procedure: 05/12/20 (internal derangement right knee) Preoperative Diagnosis: internal derangement right knee Postoperative Diagnosis: 1. Tear medial meniscus right knee 2. Grade1 chondromalacia medial femoral condyle right knee 3. Grade 2/3 chondromalacia patella right knee 4. Reactive synovitis medial, lateral and suprapatellar compartments right knee Procedure(s) Performed: 1. Arthroscopic partial medial meniscectomy right knee 2. Arthroscopic chondroplasty medial femoral condyle right knee 3. Arthroscopic chondroplasty patella right knee 4. Arthroscopic partial synovectomy medial, lateral and suprapatellar compartments right knee Anesthesia: ARIKA, local Surgeon: Mckay Arnold Estimated Blood Loss (ml): 7 Pathology: none sent Condition: stable Disposition: PACU Indications for Procedure: 34-year-old patient seen with progressive right knee pain. After having treatment options discussed, she elected to proceed with arthroscopy. Operative Findings: see description of procedure Description of Procedure: Patient was taken to the operative suite. Patient underwent a Gen. anesthetic by the department of anesthesia. Patient was given preoperative antibiotics. The right lower extremity was placed in a well-padded arthroscopic leg landis. The right leg was prepped and draped in the normal sterile orthopedic fashion. A lateral parapatellar and suprapatellar incision was made. Trochars were inserted. Arthroscopy was initiated. Suprapatellar pouch revealed diffuse thick reactive synovitis. The patellofemoral joint appeared to articulate congruently. There was grade 2/3 chondromalacia of the patella. The scope was guided into the medial gutter. No loose bodies or plica were identified. The scope was then guided into the medial compartment. A medial parapatellar incision was made. Trocar inserted followed by probe. there was a small radial tear posterior horn medial meniscus. There were grade 1 chondral moist changes of the femoral condyle some small osteochondral flap tears. There was thick r eactive synovitis anteriorly. I performed a partial medial meniscectomy. I performed a chondroplasty of the medial femoral condyle. I performed a partial synovectomy. The residual meniscus was stable. The residual osteochondral surface was stable. There was good decompression of the synovitis. Scope and probe were then guided into the intercondylar notch. Cruciates were identified, probed and found to be stable. The scope and probe were then guided into lateral compartment. Lateral meniscus was probed and found to be stable. There was no significant chondromalacia. There was thick reactive synovitis anteriorly. A motorize shaver was introduced and partial synovectomy was performed. There was good decompression of the synovitis. The scope was in guided back into the suprapatellar compartment. I introduced a motorized shaver into the super compartment. I debrided some small piecemeal fragments of meniscus I encountered. I performed a chondroplasty of the patella gained down to stable osteochondral tissue. I performed a partial synovectomy. Shaver was removed. There was good decompression of synovitis. The residual osteochondral surface of patella was stable. Instruments were now removed from the joint. The joint was infiltrated with .25% Marcaine. Steri-Strips were applied to the portal sites. Sterile dressings were applied. The patient was placed into a LAUREL hose. No tourniquet was utilized. The patient was awakened, transferred to a bed and taken to recovery stable satisfactory condition.
[2020-05-12 13:28] VITALS: TEMP 97.8
[2020-05-12] MEDS: HYDROmorphone 0.5 MG/0.5 ML SYRINGE IVP PRN ×2 (13:29→13:45)
[2020-05-12 13:59] VITALS: RESP 16
[2020-05-12] MEDS ORDERED: LACTATED RINGERS 1,000 ML IV ONE (14:07)
[2020-05-12 14:40] VITALS: BP 128/74; PULSE 93
== END 2020-05-12 14:55 | disposition home or self-care (01) ==
LOC: OR 11:00
PROVIDERS: ATTEND Orthopaedic Surgery
DX: M23.221 Derangement of posterior horn of medial meniscus due to old tear or injury, right knee (principal); M17.11 Unilateral primary osteoarthritis, right knee; M65.861 Other synovitis and tenosynovitis, right lower leg; M22.41 Chondromalacia patellae, right knee; F41.9 Anxiety disorder, unspecified; F32.9 Major depressive disorder, single episode, unspecified; M54.5 Low back pain; G89.29 Other chronic pain; E66.9 Obesity, unspecified; Z79.891 Long term (current) use of opiate analgesic; Z79.899 Other long term (current) drug therapy; Z68.38 Body mass index [BMI] 38.0-38.9, adult
CPT/HCPCS: 29881; 81025; J2250; J1100; J0690; J2405; J2001; J3010; J1170 ×2; J1885; J2704

== ENCOUNTER → 2020-06-16 | Outpatient (CLI) | payer MEDICARE, OTHER ==
--- NOTE | 2020-06-16 12:49 | XR ---
EXAMINATION TYPE: XR chest 2V DATE OF EXAM: 06/16/2020 COMPARISON: 12/21/2017 HISTORY: Chest pain TECHNIQUE: Frontal and lateral views of the chest are obtained. FINDINGS: There is no focal air space opacity. No evidence for pneumothorax. No pleural effusion. The cardiac silhouette size is within normal limits. The osseous structures are grossly intact. IMPRESSION: 1. No acute cardiopulmonary process.
[2020-06-16 13:49] LABS: Basophils % (A) 1 %; Eosinophils # (A) 0.2 k/uL (0-0.7); Eosinophils % (A) 2 %; HCT 41.4 % (34.0-46.0); HGB 13.9 gm/dL (11.4-16.0); Lymphocytes # (A) 2.1 k/uL (1.0-4.8); Lymphocytes % (A) 28 %; MCH 29.4 pg (25.0-35.0); MCHC 33.6 g/dL (31.0-37.0); MCV 87.7 fL (80.0-100.0); Mean Platelet Volume 8.6; Monocytes # (A) 0.4 k/uL (0-1.0); Monocytes % (A) 6 %; Neutrophils # (A) 4.4 k/uL (1.3-7.7); Neutrophils % (A) 61 %; Platelet Count 223 k/uL (150-450); RBC 4.71 m/uL (3.80-5.40); RDW 12.7 % (11.5-15.5); WBC 7.2 k/uL (3.8-10.6)
[2020-06-16 19:12] LABS: Cyclic Citrull Pep IgG Unit <0.5 U/mL; Cyclic Citrullinated Pep IgG NEGATIVE (NEGATIVE)
[2020-06-16 19:22] LABS: Hemoglobin A1C 5.3 % (4.0-6.0)
[2020-06-17 12:04] LABS: ANA Pattern Speckled
== END | disposition home or self-care (01) ==
LOC: LABWHC1 12:12
PROVIDERS: ATTEND Dermatology Procedural Dermatology
DX: L74.519 Primary focal hyperhidrosis, unspecified (principal)
CPT/HCPCS: 36415; 71046; 83036; 85025; 86038; 86039; 86200; 86431; 86480

== ENCOUNTER → 2020-07-26 | Outpatient (CLI) | payer MEDICARE, OTHER ==
[2020-07-26 15:03] LABS: Basophils % (A) 1 %; Eosinophils # (A) 0.3 k/uL (0-0.7); Eosinophils % (A) 5 %; HCT 38.6 % (34.0-46.0); HGB 13.8 gm/dL (11.4-16.0); Lymphocytes # (A) 2.2 k/uL (1.0-4.8); Lymphocytes % (A) 34 %; MCH 30.6 pg (25.0-35.0); MCHC 35.8 g/dL (31.0-37.0); MCV 85.5 fL (80.0-100.0); Mean Platelet Volume 8.2; Monocytes # (A) 0.4 k/uL (0-1.0); Monocytes % (A) 7 %; Neutrophils # (A) 3.3 k/uL (1.3-7.7); Neutrophils % (A) 52 %; Platelet Count 213 k/uL (150-450); RBC 4.51 m/uL (3.80-5.40); RDW 12.7 % (11.5-15.5); WBC 6.4 k/uL (3.8-10.6)
[2020-07-26 15:23] LABS: Appearance,Urine Clear (Clear); Bilirubin,Urine Negative (Negative); Blood,Urine Negative (Negative); Color,Urine Yellow; Glucose,Urine (UA) Negative (Negative); Ketones,Urine Negative (Negative); Leukocyte Esterase,Urine Negative (Negative); Nitrite,Urine Negative (Negative); Protein,Urine Trace (Negative); Specific Gravity,Urine 1.032 (1.001-1.035); Urobilinogen,Urine <2.0 mg/dL (<2.0)
[2020-07-27 06:03] LABS: Anti-DNA, DS unit <1.0 IU/mL; Anti-Smith Ab Interp NEGATIVE (NEGATIVE); DNA Double-Stranded NEGATIVE (NEGATIVE)
== END | disposition home or self-care (01) ==
LOC: LABWHC1 13:52
PROVIDERS: ATTEND Dermatology Procedural Dermatology
DX: M32.10 Systemic lupus erythematosus, organ or system involvement unspecified (principal)
CPT/HCPCS: 36415; 81003; 85025; 86038; 86039; 86160; 86225; 86235

== ENCOUNTER → 2022-04-10 | Outpatient (CLI) | payer MEDICARE, OTHER ==
[2022-04-10 18:00] LABS: Anti-DNA, DS unit <1.0 IU/mL; Anti-Smith Ab Interp NEGATIVE (NEGATIVE); Centromere Antibody <0.2 AI; Centromere Antibody Interp NEGATIVE (NEGATIVE); Cyclic Citrull Pep IgG Unit <0.5 U/mL; Cyclic Citrullinated Pep IgG NEGATIVE (NEGATIVE); DNA Double-Stranded NEGATIVE (NEGATIVE); JO-1 IgG Antibody <0.2 AI
[2022-04-10 19:00] LABS: C Reactive Protein 0.3 mg/dL (0.00-0.80)
[2022-04-11 14:38] LABS: Histone Antibody 0.1 UNITS (<1.0)
== END | disposition home or self-care (01) ==
LOC: LABWHC1 10:22
PROVIDERS: ATTEND Nurse Practitioner Family
DX: M25.50 Pain in unspecified joint (principal)
CPT/HCPCS: 36415; 83516; 86038; 86039; 86140; 86200; 86225; 86235; 86431

== ENCOUNTER → 2022-05-30 | Outpatient (CLI) | payer MEDICARE, OTHER | END | disposition home or self-care (01) | LOC: LABWHC1 11:59 | PROVIDERS: ATTEND Psychiatry & Neurology Neurology | DX: E55.9 Vitamin D deficiency, unspecified (principal); R53.82 Chronic fatigue, unspecified | CPT/HCPCS: 36415; 82306; 82607 ==

== ENCOUNTER 2024-04-04 07:55 | Emergency (ER) | payer MEDICARE, OTHER ==
[2024-04-04 08:02] VITALS: PULSE 58; TEMP 98.5
--- NOTE | 2024-04-04 08:21 | ED ---
General Adult HPI - General Chief complaint: Nausea/Vomiting/Diarrhea Stated complaint: vomiting Time Seen by Provider: 04/04/24 08:04 Source: patient Mode of arrival: ambulatory Limitations: no limitations - History of Present Illness Initial comments: Dictation was produced using [employer] dictation software. please excuse any grammatical, word or spelling errors. Chief Complaint: 38-year-old female presents emergency department with right lower quadrant pain nausea and vomiting History of Present Illness: Patient 38-year-old female she has past medical history of chronic pain and chronic back pain. She takes pain medications. States that since 3 AM she started to have profuse nausea vomiting and abdominal pain. States pain is right lower quadrant. No vaginal discharge. No diarrhea. States that her emesis nonbilious nonbloody. Patient tried taking Zofran at home with no alleviation of the symptoms. Denies any fever or constitutional symptoms. The ROS documented in this emergency department record has been reviewed and confirmed by me. Those systems with pertinent positive or negative responses have been documented in the HPI. All other systems are other negative and/or noncontributory. - Related Data Home Medications Medication Instructions Recorded Confirmed lamoTRIgine [LaMICtal] 200 mg PO HS 11/13/17 09/17/22 Erenumab-Aooe [Aimovig 140 mg SQ Q30D 02/02/20 09/17/22 Autoinjector] oxyCODONE HCL [OxyIR] 5 mg PO BID PRN 02/02/20 09/17/22 Baclofen [Lioresal] 10 mg PO BID PRN 09/17/22 09/17/22 FLUoxetine HCL [PROzac] 40 mg PO DAILY 09/17/22 09/17/22 Morphine Pain Pump 1 dose INTRATHECA CONTINUOUS 09/17/22 09/17/22 Naloxegol Oxalate [Movantik] 25 mg PO DAILY 09/17/22 09/17/22 Omeprazole 20 mg PO DAILY PRN 09/17/22 09/17/22 Ondansetron [Zofran] 4 mg PO BID PRN 09/17/22 09/17/22 Rizatriptan Benzoate [Maxalt] 10 mg PO BID PRN 09/17/22 09/17/22 Allergies Allergy/AdvReac Type Severity Reaction Status Date / Time TAPE AdvReac Rash/Hives Uncoded 04/04/24 08:02 Review of Systems ROS Statement: Those systems with pertinent positive or pertinent negative responses have been documented in the HPI. ROS Other: All systems not noted in ROS Statement are negative. Past Medical History Past Medical History: No Reported History Additional Past Medical History / Comment(s): chronic back pain History of Any Multi-Drug Resistant Organisms: None Reported Past Surgical History: No Surgical Hx Reported Additional Past Surgical History / Comment(s): LUMBAR FUSION 2016 Past Psychological History: Anxiety, Depression Smoking Status: Never smoker Past Alcohol Use History: Occasional Past Drug Use History: None Reported General Exam - General Exam Comments Initial Comments: PHYSICAL EXAM: General Impression: Alert and oriented x3, not in acute distress HEENT: Normocephalic atraumatic, extra-ocular movements intact, pupils equal and reactive to light bilaterally, mucous membranes moist. Cardiovascular: Heart regular rate and rhythm Chest: Able to complete full sentences, no retractions, no tachypnea Abdomen: abdomen soft, palpatory tenderness to the right lower quadrant non- distended, no organomegaly Musculoskeletal: Pulses present and equal in all extremities, no peripheral edema Motor: no focal deficits noted Neurological: CN II-XII grossly intact, no focal motor or sensory deficits noted Skin: Intact with no visualized rashes Psych: Normal affect and mood Limitations: no limitations Course Vital Signs 04/04/24 08:00 Temperature 98.5 F Pulse Rate 58 L Respiratory 18 Rate Blood Pressure 140/84 O2 Sat by Pulse 100 Oximetry Medical Decision Making - Medical Decision Making Was pt. sent in by a medical professional or institution (, PA, PHYSICIAN PRACTICE COORDINATOR, urgent care, hospital, or detention...) When possible be specific @ -No Did you speak to anyone other than the patient for history (EMS, parent, family, police, friend...)? What history was obtained from this source @ -No Did you review nursing and triage notes (agree or disagree)? Why? @ -I reviewed and agree with nursing and triage notes Were old charts reviewed (outside hosp., previous admission, EMS record, old EKG , old radiological studies, urgent care reports/EKG's, detention records)? Report findings @ -No old charts were reviewed Differential Diagnosis (chest pain, altered mental status, abdominal pain women, abdominal pain men, vaginal bleeding, musculoskeletal, weakness, fever, dyspnea, syncope, headache, dizziness, GI bleed, back pain, seizure, CVA, palpatations, mental health)? @ -Differential Abdominal Pain Women: Appendicitis, Cholecystitis, diverticulosis, ischemic bowel, pancreatitis, h epatitis, UTI, gastroenteritis, AAA, incarcerated hernia, bowel obstruction, constipation, inflammatory bowel, hepatitis, peptic ulcer disease, splenic infarction, perforated viscus, vulvitis, ovarian torsion, PID, kidney stone, placenta abruption, this is not meant to be an all-inclusive list EKG interpreted by me (3pts min.). @ -None done X-rays interpreted by me (1pt min.). @ -None done CT interpreted by me (1pt min.). @ -CT of the abdomen pelvis shows mild enteritis U/S interpreted by me (1pt. min.). @ -None done What testing was considered but not performed or refused? (CT, X-rays, U/S, labs)? Why? @ -None What meds were considered but not given or refused? Why? @ -None Was smoking cessation discussed for >3mins.? @ -No Were there social determinants of health that impacted care today? How? (Homelessness, low income, unemployed, alcoholism, drug addiction, transportation, low edu. Level, literacy, decrease access to med. care, senior care, rehab)? @ -No Was there de-escalation of care discussed even if they declined (Discuss DNR or withdrawal of care, Hospice)? DNR status @ -No What co-morbidities impacted this encounter? (DM, HTN, Smoking, COPD, CAD, Cancer, CVA, ARF, Chemo, Hep., AIDS, mental health diagnosis, sleep apnea, morbid obesity)? @ -None Was patient admitted / discharged? Hospital course, mention meds given and route, prescriptions, significant lab abnormalities, going to OR and other pertinent info. @ -38-year-old female presents to the ER for chief complaint of abdominal pain nausea and vomiting. Vital signs upon arrival are within acceptable limits. Patient did have some palpatory abdominal pain to the right lower quadrant. Laboratory evaluation obtained. Mild leukocytosis 11.6. Metabolic panel is within acceptable limits. CT shows enteritis of the terminal ileum. No acute appendicitis. Patient given IV fluids analgesics with improvement of symptoms. Patient discharged advised follow-up with primary care doctor. Given referral to GI specialist. Did you discuss the management of the patient with other professionals (professionals i.e. , PA, PHYSICIAN PRACTICE COORDINATOR, lab, RT, psych nurse, social insurance analyst, family lawyer, teacher, branch officer, nurse outreach case manager)? Give summary @ -No Was critical care preformed (if so, how long)? @ -No Undiagnosed new problem with uncertain prognosis? @ -No Drug Therapy requiring intensive monitoring for toxicity (Heparin, Nitro, Insulin, Cardizem)? @ -No Were any procedures done? @ -No Diagnosis/symptom? Acute, or Chronic, or Acute on Chronic? Uncomplicated (without systemic symptoms) or Complicated (systemic symptoms)? @ -Enteritis Side effects of treatment? @ -No Exacerbation, Progression, or Severe Exacerbation? @ -No Poses a threat to life or bodily function? How? (Chest pain, [place], [place], pneumonia, PE, COPD, DKA, ARF, appy, cholecystitis, CVA, Diverticulitis, Homicidal, Suicidal, threat to staff... and all critical care pts) @ -yes - Lab Data Result diagrams: 04/04/24 08:31 04/04/24 08:31 Lab Results 04/04/24 04/04/24 Range/Units 08:31 08:31 WBC 11.6 H (3.8-10.6) k/uL RBC 5.06 (3.80-5.40) m/uL Hgb 14.6 (11.4-16.0) gm/dL Hct 42.9 (34.0-46.0) % MCV 84.9 (80.0-100.0) fL MCH 28.8 (25.0-35.0) pg MCHC 33.9 (31.0-37.0) g/dL RDW 13.2 (11.5-15.5) % Plt Count 279 (150-450) k/uL MPV 8.8 Neutrophils % 72 % Lymphocytes % 22 % Monocytes % 3 % Eosinophils % 1 % Basophils % 0 % Neutrophils # 8.3 H (1.3-7.7) k/uL Lymphocytes # 2.6 (1.0-4.8) k/uL Monocytes # 0.4 (0-1.0) k/uL Eosinophils # 0.1 (0-0.7) k/uL Basophils # 0.0 (0-0.2) k/uL Sodium 140 (137-145) mmol/L Potassium 3.7 (3.5-5.1) mmol/L Chloride 106 (98-107) mmol/L Carbon Dioxide 24 (22-30) mmol/L Anion Gap 10 mmol/L BUN 13 (7-17) mg/dL Creatinine 0.68 (0.52-1.04) mg/dL Est GFR (CKD-EPI)AfAm >90 (>60 ml/min/1.73 sqM) Est GFR (CKD-EPI)NonAf >90 (>60 ml/min/1.73 sqM) Glucose 139 H (74-99) mg/dL Calcium 10.2 (8.4-10.2) mg/dL Total Bilirubin 0.7 (0.2-1.3) mg/dL AST 36 (14-36) U/L ALT 33 (4-34) U/L Alkaline Phosphatase 82 (38-126) U/L Total Protein 8.1 (6.3-8.2) g/dL Albumin 4.8 (3.5-5.0) g/dL Lipase 101 (23-300) U/L HCG, Quant <2.4 mIU/mL Disposition Clinical Impression: Enteritis Disposition: HOME SELF-CARE Condition: Good Instructions (If sedation given, give patient instructions): Enteritis (ED) Is patient prescribed a controlled substance at d/c from ED?: No Referrals: Jacqueline Yeh MD [Primary Care Provider] - 1-2 days Diamond Roe MD [STAFF PHYSICIAN] - 1-2 days Time of Disposition: 11:09
[2024-04-04] MEDS: SODIUM CHLORIDE 0.9% 1,000 ML IV STA (08:38)
[2024-04-04] MEDS: ONDANSETRON 4 MG/2 ML VIAL IVP STA (08:40)
[2024-04-04 08:44] LABS: Basophils % (A) 0 %; Eosinophils # (A) 0.1 k/uL (0-0.7); Eosinophils % (A) 1 %; HCT 42.9 % (34.0-46.0); HGB 14.6 gm/dL (11.4-16.0); Lymphocytes # (A) 2.6 k/uL (1.0-4.8); Lymphocytes % (A) 22 %; MCH 28.8 pg (25.0-35.0); MCHC 33.9 g/dL (31.0-37.0); MCV 84.9 fL (80.0-100.0); Mean Platelet Volume 8.8; Monocytes # (A) 0.4 k/uL (0-1.0); Monocytes % (A) 3 %; Neutrophils # (A) 8.3 k/uL (1.3-7.7); Neutrophils % (A) 72 %; Platelet Count 279 k/uL (150-450); RBC 5.06 m/uL (3.80-5.40); RDW 13.2 % (11.5-15.5); WBC 11.6 k/uL (3.8-10.6)
[2024-04-04 08:57] LABS: ALT 33 U/L (4-34); AST 36 U/L (14-36); African American GFR (CKD) >90 (>60 ml/min/1.73 sqM); Albumin 4.8 g/dL (3.5-5.0); Alkaline Phosphatase 82 U/L (38-126); Anion Gap 10 mmol/L; Blood Urea Nitrogen 13 mg/dL (7-17); Calcium 10.2 mg/dL (8.4-10.2); Carbon Dioxide 24 mmol/L (22-30); Chloride 106 mmol/L (98-107); Glucose 139 mg/dL (74-99); Lipase 101 U/L (23-300); Non-African American GFR(CKD) >90 (>60 ml/min/1.73 sqM); Potassium 3.7 mmol/L (3.5-5.1); Sodium 140 mmol/L (137-145); Total Bilirubin 0.7 mg/dL (0.2-1.3); Total Protein 8.1 g/dL (6.3-8.2)
[2024-04-04] MEDS: MORPHINE SULFATE 4 MG/ML SYRINGE IV STA (08:59)
[2024-04-04 09:13] LABS: HCG,Quantitative Serum <2.4 mIU/mL
--- NOTE | 2024-04-04 10:27 | CT ---
EXAMINATION TYPE: CT abdomen pelvis w con DATE OF EXAM: 04/04/2024 COMPARISON: NONE HISTORY: 38-year-old female RIGHT SIDED MID ABD PAIN TECHNIQUE: Contiguous axial scanning of the abdomen and pelvis following administration of 100 ml Iso erin 300 IV contrast. Delayed images through the kidneys and coronal/sagittal reconstructions perform ed. CT DLP: 1490.8 mGycm Automated exposure control for dose reduction was used. FINDINGS: The heart is upper limits of normal in size without pericardial effusion. Lung bases are wi thout pleural effusion. There is a small hiatal hernia present. Scattered tiny calcified granulomas within the liver. No abnormal gallbladder distention. Portal veno us system is patent. No biliary ductal dilatation. Adrenal glands, right kidney, pancreas within normal limits. Left kidney shows a punctate 3 mm nonobstructive left renal stone. There is a 1.2 cm benign cortical cyst lower pole left kidney. A few punctate calcified granulomas within the spleen. No dilated small bowel, free fluid, or free air. No mesenteric or retroperitoneal lymph nodes. Segmen ts of a normal appendix are identified. Possible mild mural thickening of terminal ileum, axial image 51 and coronal image 49. Bladder partially distended. Uterus anteverted. Both ovaries are visualized. Mild cul-de-sac and righ t adnexal free fluid likely physiologic. Mild stool within the distal sigmoid and rectum. No pelvic l ymphadenopathy. Bones: Moderate degenerative disc disease above the patient's lumbar fusion L2-L3. Status post L3-S1 anterior, interbody, and posterior lumbar fusion changes. Spinal stimulator extends up to the lower t horacic spinal canal. IMPRESSION: 1. THERE MAY BE MILD CIRCUMFERENTIAL THICKENING OF THE TERMINAL ILEUM. CONSIDER A MILD INFECTIOUS OR INFLAMMATORY ENTERITIS. NORMAL APPENDIX. 2. PUNCTATE NONOBSTRUCTIVE 3 MM LEFT RENAL STONE. 3. SMALL HIATAL HERNIA. 4. MILD CUL DE SAC AND RIGHT ADNEXAL FREE FLUID, LIKELY PHYSIOLOGIC.
[2024-04-04] MEDS: HYDROmorphone 1 MG/ML 1 ML SYRINGE IVP STA (10:37)
[2024-04-04 11:17] VITALS: BP 134/84; RESP 20
== END 2024-04-04 11:18 | disposition home or self-care (01) ==
LOC: EC 07:55
DX: K52.9 Noninfective gastroenteritis and colitis, unspecified (principal); Z91.09 Other allergy status, other than to drugs and biological substances
CPT/HCPCS: 36415; 80053; 83690; 85025; 84702; 74177; 99284; 96374; 96375 ×2; 96361; J2270; J2405; J1170; Q9967